=== PATIENT | female | born 1950 | race Caucasian/White ===

== ENCOUNTER 2018-11-04 06:48 | Emergency (ER) | payer MEDICARE ==
--- NOTE | 2018-11-04 07:11 | ED ---
Throat Pain/Nasal Congestion - HPI Summary HPI Summary: A 68 y/o F presents to ED c/o worsening L eye blurriness onset two days ago. She woke up at 0300 two days ago and went to the bathroom and turned the light on, and her L eye has "felt weird" since. Associated sx: mild and sharp, intermittent FELIPE over L forehead; mild L eye pain. Pt denies any chills, erythema of eyes, floaters, sore throat, CP, SOB, cough, abdominal pain, N/V, dysuria, hematuria, myalgia, edema, rash, or dizziness, numbness, tingling, changes in speech, unsteady gait. She does not think there's a foreign body in the eye. She denies head injury and recent falls. She has not been to an eye doctor in "a long time." Patient was busy and active over the weekend. She was ill with a cold about 3 weeks ago, mostly resolved, with sx including: cold sores, fever and rhinorrhea. She also has a known cracked tooth on L with pain radiating up her face. PMHx: shingles on her face as a child. - History of Current Complaint Chief Complaint: EDGeneral Hx Obtained From: Patient Onset/Duration: Sudden Onset, Lasting Days, Still Present Severity: Moderate Associated Signs And Symptoms: Negative: FB Sensation Cough: None - Allergies/Home Medications Allergies/Adverse Reactions: Allergies Allergy/AdvReac Type Severity Reaction Status Date / Time acetaminophen [From Vicodin] Allergy Unknown Verified 11/04/18 08:42 Reaction Details hydrocodone [From Vicodin] Allergy Unknown Verified 11/04/18 08:42 Reaction Details oxycodone Allergy Unknown Verified 11/04/18 08:42 Reaction Details PMH/Surg Hx/FS Hx/Imm Hx Previously Healthy: No - shingles as a child Musculoskeletal History: Denies: Hx Osteoporosis Sensory History: Reports: Hx Contacts or Glasses Opthamlomology History: Reports: Hx Contacts or Glasses Neurological History: Denies: Hx Dementia - Cancer History Hx Chemotherapy: No Hx Radiation Therapy: No Infectious Disease History: No Infectious Disease History: Denies: Traveled Outside the [place] in Last 30 Days - Family History Known Family History: Positive: Other Family History: Breast CA - maternal ggm - Social History Occupation: Works From/At Home - [employer] Lives: With Family Alcohol Use: Occasionally Hx Substance Use: Yes Substance Use Type: Reports: Marijuana Hx Tobacco Use: Yes Smoking Status (MU): Former Smoker Review of Systems Positive: Fever - resolved. Negative: Chills Eyes: Other - neg: visual floaters, foreign body sensation Positive: Blurred Vision - L eye, Other - pos: mild L eye pain. Negative: Erythema Positive: Dental Pain - L tooth pain, Nasal Discharge - resolved, Other - pos: cold sores in nose (resolved). Negative: Sore Throat Negative: Chest Pain Negative: Shortness Of Breath, Cough Negative: Abdominal Pain, Vomiting, Nausea Negative: dysuria, hematuria Negative: Myalgia, Edema Negative: Rash Neurological: Other - neg: dizziness, slurred speech Positive: Headache. Negative: Numbness - neg: tingling, Slurred Speech All Other Systems Reviewed And Are Negative: Yes Physical Exam - Summary Physical Exam Summary: Constitutional: Well-developed, Well-nourished, Alert. (-) Distressed Skin: Warm, Dry HENT: Normocephalic; Atraumatic. No temporal bruit, no temporal artery tenderness, no visible blisters, TM appears normal. Eyes: L eye has conjunctival injection. Funduscopic exam was limited by constricted pupil. Fluorescein uptake over central axis that appears irregular and possibly dendritic, over central visual field. Ocular pressures are 40, 44, 42. Neck: Musculoskeletal ROM normal neck. (-) JVD, (-) Stridor, (-) Tracheal deviation Cardio: Rhythm regular, rate normal, Heart sounds normal; Intact distal pulses; The pedal pulses are 2+ and symmetric. Radial pulses are 2+ and symmetric. (-) Murmur Pulmonary/Chest wall: Effort normal. (-) Respiratory distress, (-) Wheezes, (-) Rales Abd: Soft. (-) Tenderness, (-) Distension, (-) Guarding, (-) Rebound Musculoskeletal: (-) Edema Lymph: (-) Cervical adenopathy Neuro: Alert, Oriented x3, Strength normal, Cranial nerves II-XII are grossly intact. (-) Dysmetria, (-) Nystagmus, (-) Ataxia by finger to nose testing, (-) Sensory deficit. Psych: Mood and affect Normal Triage Information Reviewed: Yes Vital Signs On Initial Exam: Initial Vitals Temp Pulse Resp BP Pulse Ox 97.0 F 75 18 132/82 99 11/04/18 06:51 11/04/18 06:51 11/04/18 06:51 11/04/18 06:51 11/04/18 06:51 Vital Signs Reviewed: Yes - Felicitas Coma Scale Best Eye Response: 4 - Spontaneous Best Motor Response: 6 - Obeys Commands Best Verbal Response: 5 - Oriented Coma Scale Total: 15 Diagnostics - Vital Signs Vital Signs Temp Pulse Resp BP Pulse Ox 11/04/18 06:51 97.0 F 75 18 132/82 99 - Laboratory Result Diagrams: 11/04/18 07:42 11/04/18 07:42 Lab Statement: Any lab studies that have been ordered have been reviewed, and results considered in the medical decision making process. - CT BRAIN CT CT Interpretation Completed By: Radiologist Summary of CT Findings: IMPRESSION: #. No acute CT abnormality of the brain evident. #. Correlate for potential acute RIGHT sphenoid sinusitis. ED provider has reviewed this report. Re-Evaluation - Re-Evaluation 1 Re-Evaluation Time: 09:33 Change: Unchanged Comment: Discussing CT results with patient, and scheduled appt with Dr. Ulloa, ophthalmology. Pt voiced understanding. EENT Course/Dx - Course Course Of Treatment: Patient is a 68 y/o F presenting with atraumatic L eye blurriness, mild L eye pain and mild FELIPE onset two days ago. She denies foreign body sensation. PE finds patient neurologically intact. There is no temporal bruit, no temporal artery tenderness, no visible blisters, and TM appears normal. The L eye has conjunctival injection and the funduscopic exam was limited by constricted pupil. Fluorescein uptake over central axis that appears irregular and possibly dendritic, over central visual field. Ocular pressures are 40, 44, 42. Labwork is without significant abnormality. Brain CT finds "No acute CT abnormality of the brain evident. Correlate for potential acute RIGHT sphenoid sinusitis.". Consulted with Dr. Ulloa, ophthamology, who wants to see patient immediately; appointment scheduled for 11:00 today. Will discharge patient home with Valtrax and to f/u with Dr. Ulloa as scheduled. - Diagnoses Provider Diagnoses: Ophthalmic herpes zoster, Corneal ulcer of left eye - Provider Notifications Discussed Care Of Patient With: Edward Ulloa - ophthamology Time Discussed With Above Provider: 09:30 Instructed by Provider To: Other - Wants to see patient AYDEN. Patient scheduled for 1100 this date. - Critical Care Time Critical Care Time: 30-74 min - 45 mins CCT Discharge - Sign-Out/Discharge Documenting (check all that apply): Patient Departure - D/C Patient Received Moderate/Deep Sedation with Procedure: No - Discharge Plan Condition: Stable Disposition: HOME Prescriptions: ValACYclovir (*) [Valtrex 1 GM(*)] 1 gm PO TID #30 tab Patient Education Materials: Valacyclovir (By mouth), Corneal Ulcer (ED) Referrals: Maryjane Porter MD [Primary Care Provider] - Edward Ulloa MD [Medical Doctor] - (11 AM TODAY, 11/04/18.) Additional Instructions: Follow-up with Dr. Ulloa, ophthalmology, TODAY at 11:00 am. Your appointment is already scheduled. Return to the emergency department for changing or worsening symptoms. - Attestation Statements Document Initiated by Scribe: Yes Documenting Scribe: Haider Zamora Provider For Whom Scribe is Documenting (Include Credential): Dr. Jim Roldan MD Scribe Attestation: I, Haider Zamora, scribed for Dr. Jim Roldan MD on 11/04/18 at 0938. Status of Scribe Document: Ready
[2018-11-04] MEDS ORDERED: Fluorescein Sodium TOPICAL* 1 MG TEST STRIP OPHTHALMIC ONE (07:31)
[2018-11-04 07:50] LABS: Hematocrit 38 % (35-47); Hemoglobin 12.6 g/dL (12.0-16.0); Mean Corpuscular HGB Conc 33 g/dL (31-36); Mean Corpuscular Hemoglobin 29 pg (27-31); Mean Corpuscular Volume 87 fL (80-97); Mean Platelet Volume 7.6 fL (7.4-10.4); Platelet Count 317 10^3/uL (150-450); Red Blood Count 4.39 10^6 /uL (3.70-4.87); Red Cell Distribution Width 14 % (10.5-15); White Blood Count 6.6 10^3/uL (3.5-10.8)
[2018-11-04] MEDS ORDERED: Tetracaine 0.5% OPTH.SOL 4 ML* 1 DROP BTL LEFT EYE SCH (08:00)
[2018-11-04 08:06] LABS: Albumin 4.3 g/dL (3.2-5.2); Albumin/Globulin Ratio 1.5 (1-3); BUN/Creatinine Ratio 20.5 (8-20); CRP High Sensitivity 1.28 mg/L (<2.00); Calcium 9.6 mg/dL (8.6-10.3); EGFR African American 89.1 (>60); EGFR Non-African American 73.7 (>60); Globulin 2.8 g/dL (2-4); Total Bilirubin 0.5 mg/dL (0.2-1.0); Total Protein 7.1 g/dL (6.4-8.9)
[2018-11-04] MEDS ORDERED: ValACYclovir (*) 1 GM TAB PO ONE (08:06)
[2018-11-04 08:57] LABS: Erythrocyte Sed Rate 11 mm/Hr (0-29)
[2018-11-04 09:44] VITALS: BP 139/86
== END 2018-11-04 09:43 | disposition home or self-care (01) ==
LOC: ED 06:48
DX: B02.30 Zoster ocular disease, unspecified (principal); H16.002 Unspecified corneal ulcer, left eye; R50.9 Fever, unspecified; H53.8 Other visual disturbances; K08.89 Other specified disorders of teeth and supporting structures; Z87.891 Personal history of nicotine dependence; R51 Headache
CPT/HCPCS: 36415; 70450; 80053; 85027; 85652; 86141; 99283; A9270-GY

== ENCOUNTER 2019-07-30 13:44 | Emergency (ER) | payer MEDICARE ==
--- OUTSIDE RECORDS SUMMARY | 2019-07-30 13:49 | XMS REPORT | Continuity of Care Document ---
:1950 External Reference #:[id number] Author Name Slick Guevara, OD Address [address] [place] [address] Care Team Providers Name Role Phone Maryjane Porter MD - Internal Care Team Information City Clerk [phone] Medicine Problems Active Problems Provider Date Problem Onset: Social History Type Date Description Comments Sex Unknown ETOH Use Occasionally consumes alcohol Tobacco Use Start: Unknown End: Unknown Patient is a former smoker quit 1983 Smoking Status Reviewed: 07/17/19 Patient is a former smoker quit 1983 Allergies, Adverse Reactions, Alerts Active Allergies Reaction Severity Comments Date Vicodin 11/04/2018 Medications Active Medications SIG Qnty Indications Ordering Provider Date Timolol Maleate one drop twice a 10ml Slikc Guevara, OD 07/17/2019 0.5% day left eye Solution Alaway one drop twice a 5ml Slick Guevara, OD 07/17/2019 0.025% Solution day left eye Combigan 1 drop left 15ml Edward Ulloa, 04/04/2019 0.2-0.5% twice a day M.D. Solution Fish Oil 1 by mouth twice Unknown 500mg Capsules a day Vitamin D Unknown 1000Unit Tablets History Medications Alphagan P 1 drop twice a 10ml Slick Guevara, OD 02/17/2019 - 0.1% day left eye 04/05/2019 Solution Immunizations Description No Information Available Vital Signs Date Vital Result Comment 05/19/2019 9:48am Intraocular Pressure Right Eye 17 mmHg Intraocular Pressure Left Eye 17 mmHg 04/11/2019 9:56am Intraocular Pressure Right Eye 16 mmHg Intraocular Pressure Left Eye 16 mmHg Results Description No Information Available Procedures Date Code Description Status 05/19/2019 09272 Ophthalmic Biometry By Partial Coherence Interferometry Completed W/Intra 05/19/2019 64797 Eye Exam Est Intermediate Completed 04/11/2019 06862 Visual Field Exam Extended, Unilateral Or Bilateral Completed 04/11/2019 71701 Eye Exam Est Intermediate Completed 03/17/2019 58320 Ophthalmic Biometry By Partial Coherence Interferometry Completed W/Intra 03/17/2019 45686 Eye Exam Est Intermediate Completed 03/17/2019 85660 Corneal Pachymetry, Unilateral/Bilateral Completed Medical Devices Description No Information Available Encounters Type Date Location Provider Dx Diagnosis Office Visit 02/17/2019 Main Office Slick Ismael, OD H40.052 Ocular 1:15p hypertension, left eye H25.13 Age-related nuclear cataract, bilateral Assessments Date Code Description Provider 07/17/2019 H40.1121 Primary open-angle glaucoma, left eye, mild Slick Guevara, OD stage 07/17/2019 H25.13 Age-related nuclear cataract, bilateral Slcik Guevara, OD 05/19/2019 H25.13 Age-related nuclear cataract, bilateral Edward Ulloa M.D. 05/19/2019 H40.1121 Primary open-angle glaucoma, left eye, mild Edward Ulloa M.D. stage 04/11/2019 H25.13 Age-related nuclear cataract, bilateral Edward Ulloa M.D. 04/11/2019 H40.1121 Primary open-angle glaucoma, left eye, mild Edward Ulloa M.D. stage 04/11/2019 H40.033 Anatomical narrow angle, bilateral Edward Ulloa M.D. 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 03/17/2019 H25.13 Age-related nuclear cataract, bilateral Edward Ulloa M.D. 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
[2019-07-30 14:36] VITALS: BP 132/89
--- NOTE | 2019-07-30 15:31 | UC ---
Skin Complaint HPI - HPI Summary HPI Summary: 68yo woman, concerned due to past hx of shingles, with onset of burning sensation in the buttock to groin today, in the L2 dermatome. This has not changed over the course of the day. No associated fever, chills, rash, myalgias. Has hx of facial shingles age 11, with symptoms November 2018 that was treated as shingles in the ER with changes in the left eye pressure, left facial dysesthesias, node swelling. Responded to antivirals. Has been on glaucoma drops since, and is meant to have cataract surgery and implantation of a valve to correct eye pressure. She has had Zostavax in the past, but not the updated vaccines for shingles. No hx of trauma or joint pains, barring mild hip pain yesterday which has resolved. Past hx of herpes 1 virus - History of Current Complaint Chief Complaint: UCGeneralIllness Time Seen by Provider: 07/30/19 15:21 Stated Complaint: SKIN PROBLEM Hx Obtained From: Patient Onset/Duration: Sudden Onset, Lasting Hours Timing: Constant Onset Severity: Moderate Current Severity: Moderate Pain Intensity: 7 Location: Discrete - left L2 dermatome Aggravating Factor(s): Touch Alleviating Factor(s): Nothing Associated Signs & Symptoms: Positive: Nausea - has felt mildly unwell today. Negative: Vomiting, Fever, Chills, Cough, Abdominal Pain - Allergy/Home Medications Allergies/Adverse Reactions: Allergies Allergy/AdvReac Type Severity Reaction Status Date / Time acetaminophen [From Vicodin] Allergy Unknown Verified 07/30/19 14:35 Reaction Details hydrocodone [From Vicodin] Allergy Unknown Verified 07/30/19 14:35 Reaction Details oxycodone Allergy Unknown Verified 07/30/19 14:35 Reaction Details Home Medications: Home Medications Timolol 0.25% OPHTH.SOLN* [Timoptic Ophth.soln 0.25%*] 1 drop LEFT EYE BID 07/30 [History Confirmed 07/30/19] ValACYclovir (*) [Valtrex 1 GM(*)] 1 gm PO TID #21 tab 07/30/19 [Rx] PMH/Surg Hx/FS Hx/Imm Hx Previously Healthy: Yes - Glaucoma - Surgical History Surgical History: Yes Surgery Procedure, Year, and Place: D&C, oral surgery - Family History Known Family History: Positive: Other - Alzheimer's disease; father brain tumor, mother old age Family History: Breast CA - maternal ggm - Social History Occupation: Retired Alcohol Use: Daily Substance Use Type: Marijuana Smoking Status (MU): Former Smoker Review of Systems All Other Systems Reviewed And Are Negative: Yes Constitutional: Positive: Fatigue Skin: Positive: Negative Eyes: Positive: Negative ENT: Positive: Negative Respiratory: Positive: Negative Cardiovascular: Positive: Negative Gastrointestinal: Positive: Nausea Genitourinary: Positive: Negative. Negative: Dysuria, Hematuria, Frequency, Urgency Motor: Positive: Negative Neurovascular: Positive: Negative Musculoskeletal: Positive: Negative Neurological/Mental Status: Positive: Other - burning sensation L2 dermatome.. Negative: Headache Psychological: Positive: Negative Is Patient Immunocompromised?: No Physical Exam Triage Information Reviewed: Yes Appearance: Well-Appearing, No Pain Distress Vital Signs: Initial Vital Signs Temp 98.2 F 07/30/19 14:30 Pulse 86 07/30/19 14:30 Resp 18 07/30/19 14:30 BP 132/89 07/30/19 14:30 Pulse Ox 100 07/30/19 14:30 Eyes: Positive: Conjunctiva Clear ENT: Positive: Normal ENT inspection, Pharynx normal Neck: Positive: Supple, Nontender, No Lymphadenopathy Respiratory: Positive: Lungs clear, Normal breath sounds Cardiovascular: Positive: RRR, No Murmur Abdomen Description: Positive: Nontender, No Organomegaly, Soft. Negative: CVA Tenderness (R), CVA Tenderness (L) Musculoskeletal Exam: Normal Musculoskeletal: Positive: Other: - hip rom full and normal SLR bilaterally Neurological Exam: Normal Psychological Exam: Normal Skin Exam: Other - no visible rash Course/Dx - Course Course Of Treatment: Discussed that symptoms sound like a prodrome of shingles, and she would like to start antivirals based on this. \Given that this is second episode suggested a CBC and check of renal function/ - Differential Diagnoses - Skin Complaint Differential Diagnoses: Other - shingles - Diagnoses Provider Diagnosis: Herpes zoster Discharge ED - Sign-Out/Discharge Documenting (check all that apply): Patient Departure All imaging exams completed and their final reports reviewed: No Studies - Discharge Plan Condition: Stable Disposition: HOME Prescriptions: ValACYclovir (*) [Valtrex 1 GM(*)] 1 gm PO TID #21 tab Patient Education Materials: Shingles (ED) Referrals: Maryjane Porter MD [Primary Care Provider] - Additional Instructions: Begin course of antiviral based on suspicion that you are developing shingles ( herpes zoster). Labs have been ordered to check a blood count. You will be called if there are abnormal values. Follow up with your primary care doctor in 1-2 weeksto discuss recurrent events and to decide if more evaluation is necessary. - Billing Disposition and Condition Condition: STABLE Disposition: Home
[2019-07-30 18:28] LABS: ABS Eosinophils 0.1 10^3/ul (0-0.6); ABS Lymphocytes 3.3 10^3/ul (1.0-4.8); ABS Monocytes 0.5 10^3/ul (0-0.8); Hematocrit 37 % (35-47); Hemoglobin 12.8 g/dL (12.0-16.0); Lymphocyte % 42.4 %; Mean Corpuscular HGB Conc 34 g/dL (31-36); Mean Corpuscular Hemoglobin 30 pg (27-31); Mean Corpuscular Volume 88 fL (80-97); Mean Platelet Volume 8.2 fL (7.4-10.4); Nucleated Red Blood Cells % 0.1; Platelet Count 284 10^3/uL (150-450); Red Blood Count 4.27 10^6 /uL (3.70-4.87); Red Cell Distribution Width 14 % (10-15); White Blood Count 7.9 10^3/uL (3.5-10.8)
[2019-07-30 18:31] LABS: Calcium 9.9 mg/dL (8.6-10.3); Potassium 3.8 mmol/L (3.5-5.0)
[2019-07-30 18:37] LABS: BUN/Creatinine Ratio 17.6 (8-20); EGFR African American 94.7 (>60); EGFR Non-African American 78.3 (>60)
== END 2019-07-30 16:12 | disposition home or self-care (01) ==
LOC: UCEAST 13:44
DX: B02.9 Zoster without complications (principal); H40.9 Unspecified glaucoma; Z87.891 Personal history of nicotine dependence; Z88.5 Allergy status to narcotic agent; Z88.6 Allergy status to analgesic agent
CPT/HCPCS: 36415; 80048; 85025; 99212; G0463